=== PATIENT | female | born 1990 | race Caucasian/White ===

== ENCOUNTER → 2021-12-25 | Outpatient (CLI) | payer OTHER ==
[~2021-12-25] MED LIST: BIRTH CONTROL1 EAC1 PO; CELEXA20 MG PO; NAPROSYN500 MG PO; VIBRAMYCIN100 MG PO
== END | disposition home or self-care (01) ==
LOC: RAD 12:19
PROVIDERS: ATTEND Nurse Practitioner Family
DX: I10 Essential (primary) hypertension (principal)